=== PATIENT | female | born 1970 | race Caucasian/White ===

== ENCOUNTER → 2017-09-12 | Emergency (ER) | payer OTHER ==
[~2017-09-12] VITALS: Ht 165.1 cm; Wt 77.1 kg
[~2017-09-12] MED LIST: MICARDIS40 MG; SYNTHROID125 MCG
== END | disposition home or self-care (01) ==
LOC: ER 08:37
DX: D72.829 Elevated white blood cell count, unspecified (principal); M79.1 Myalgia; N39.0 Urinary tract infection, site not specified